=== PATIENT | female | born 1995 | race American Indian/Alaskan Native ===

== ENCOUNTER 2017-04-20 09:50 | Emergency (ER) | payer SELFPAY ==
[2017-04-20 13:30] LABS: Bacteria,Urine 4+ /HPF (Negative); Bilirubin,Urine NEG (Negative); Blood,Urine MOD (Negative); Ketones,Urine NEG (Negative); Leukocyte Esterase,Urine LG (Negative); Mucus,Urine 2+ /HPF; Nitrite,Urine NEG (Negative)
[2017-04-20 13:33] LABS: RBC,Urine > 182.0 /HPF (0.0-6.0); WBC,Urine > 182.0 /HPF (0.0-6.0)
[2017-04-20] MEDS ORDERED: NACL 0.9% 1000 ML 1,000 ML IV ONE (13:55)
[2017-04-20] MEDS ORDERED: ZOFRAN IV ONE (13:55)
[2017-04-20] MEDS ORDERED: MORPHINE IV ONE (13:55)
--- NOTE | 2017-04-20 13:59 | Emergency Department Report ---
ED Abdominal Pain HPI - General Chief Complaint: Abdominal Pain Stated Complaint: ABDOMINAL PAIN,VOMITING Time Seen by Provider: 04/20/17 13:50 Source: patient Mode of arrival: Ambulatory Limitations: No Limitations - History of Present Illness Initial Comments: Patient is 21 years old female with no significant past medical history coming today with left flank pain started last night radiated down to groin area associated with nausea and vomiting and hematuria. Patient denied any fever OR diarrhea. MD Complaint: abdominal pain, flank pain -: Last night Location: R flank Radiation: suprapubic Migration to: no migration Severity: severe Severity scale (0 -10): 9 Quality: sharp Consistency: intermittent Associated Symptoms: nausea, vomiting, dysuria, hematuria. denies: diarrhea, chills - Related Data Allergies Allergy/AdvReac Type Severity Reaction Status Date / Time No Known Allergies Allergy Unverified 04/20/17 10:11 ED Review of Systems ROS: Stated complaint: ABDOMINAL PAIN,VOMITING Other details as noted in HPI Comment: All other systems reviewed and negative Constitutional: denies: chills, fever Respiratory: denies: cough, orthopnea, shortness of breath Cardiovascular: denies: chest pain, palpitations, edema Gastrointestinal: abdominal pain, nausea, vomiting. denies: diarrhea, constipation, hematemesis, hematochezia Genitourinary: dysuria, frequency, hematuria Musculoskeletal: back pain Neurological: denies: headache, weakness, numbness, paresthesias ED Past Medical Hx - Past Medical History Previous Medical History?: Yes Hx Asthma: Yes - Surgical History Past Surgical History?: No - Social History Smoking Status: Never Smoker Substance Use Type: None ED Physical Exam - General Limitations: No Limitations General appearance: alert, in no apparent distress - Head Head exam: Present: normocephalic, normal inspection - Eye Eye exam: Present: normal appearance Pupils: Present: normal accommodation - ENT ENT exam: Present: normal exam, normal orophraynx, mucous membranes dry - Neck Neck exam: Present: normal inspection. Absent: meningismus, full ROM, lymphadenopathy - Respiratory Respiratory exam: Present: normal lung sounds bilaterally. Absent: respiratory distress, wheezes, rales, rhonchi, chest wall tenderness, accessory muscle use, decreased breath sounds - Cardiovascular Cardiovascular Exam: Present: regular rate, normal rhythm, normal heart sounds - GI/Abdominal GI/Abdominal exam: Present: soft, tenderness, normal bowel sounds. Absent: distended, guarding, rebound, rigid, mass, bruit, pulsatile mass - Extremities Exam Extremities exam: Absent: pedal edema, calf tenderness - Back Exam Back exam: Present: normal inspection, CVA tenderness (R). Absent: tenderness, CVA tenderness (L), muscle spasm, paraspinal tenderness, vertebral tenderness - Neurological Exam Neurological exam: Present: alert, oriented X3, CN II-XII intact, normal gait - Skin Skin exam: Present: warm, dry, intact ED Course Vital Signs 04/20/17 04/20/17 04/20/17 10:08 14:09 14:11 Temperature 98.3 F 98.8 F Pulse Rate 86 79 Respiratory 16 18 18 Rate Blood Pressure 119/84 Blood Pressure 117/71 [Right] O2 Sat by Pulse 100 Oximetry 04/20/17 14:39 Temperature Pulse Rate Respiratory 18 Rate Blood Pressure Blood Pressure [Right] O2 Sat by Pulse Oximetry - Reevaluation(s) Reevaluation #1: 04/20/17 16:39 Patient stated that she is feeling much better.. ED Medical Decision Making - Lab Data Result diagrams: 04/20/17 14:05 04/20/17 14:05 - Radiology Data Radiology results: report reviewed CT abdomen and pelvis unremarkable for acute change - Medical Decision Making Patient stated that she is feeling much better reviewed, urine is positive for UTI patient received Rocephin in the ER and given a prescription for ciprofloxacin for 7 days. Critical care attestation.: If time is entered above; I have spent that time in minutes in the direct care of this critically ill patient, excluding procedure time. ED Disposition Clinical Impression: Abdominal pain, UTI (urinary tract infection) Disposition: - TO HOME OR SELFCARE Is pt being admited?: No Condition: Stable Instructions: Abdominal Pain (ED), Urinary Tract Infection in Women (ED) Referrals: PRIMARY CARE, [Primary Care Provider] - 3-5 Days
[2017-04-20 14:22] LABS: Basophils % (Auto) 0.5 % (0.0-1.8); Eosinophils % (Auto) 0.9 % (0.0-4.3); Hematocrit 36.8 % (30.3-42.9); Hemoglobin 11.7 gm/dl (10.1-14.3); Mean Corpuscular HGB Conc 32 % (30-34); Mean Corpuscular Hemoglobin 30 pg (28-32); Mean Corpuscular Volume 94 fl (79-97); Platelet Count 251 K/mm3 (140-440); Red Blood Count 3.92 M/mm3 (3.65-5.03); Red Cell Distribution Width 14.7 % (13.2-15.2); White Blood Count 10.9 K/mm3 (4.5-11.0)
[2017-04-20 14:37] LABS: Alanine Aminotransferase 11 units/L (7-56); Albumin 3.9 g/dL (3.9-5); Alkaline Phosphatase 63 units/L (35-129); Anion Gap 15 mmol/L; BUN/Creatinine Ratio 13; Blood Urea Nitrogen 8 mg/dL (7-17); Carbon Dioxide 25 mmol/L (22-30); Chloride 102.2 mmol/L (98-107); Glucose 81 mg/dL (65-100); Lipase 25 units/L (13-60); Potassium 3.8 mmol/L (3.6-5.0); Sodium 138 mmol/L (137-145); Total Protein 7.8 g/dL (6.3-8.2)
--- NOTE | 2017-04-20 15:04 | Cat Scan Report ---
CT abdomen and pelvis without contrast: Right flank pain. Transverse images are obtained from the low chest to the ischium with coronal and sagittal 2-D reformatted images. The visualized lungs are clear. The abdominal and retroperitoneal organs appear unremarkable. There is no evidence renal calculus nor obstructive uropathy. The unopacified bowel and mesentery is normal. The appendix is visualized. No inflammatory changes appreciated. The abdominal aorta is normal in size and contour. No periaortic adenopathy noted. There is an umbilical hernia containing fat. The mouth of the hernia is 2.7 cm wide. The reproductive organs are present and the pelvis is unremarkable. Impression: No pathology identified.
[2017-04-20] MEDS ORDERED: ROCEPHIN/NS 1 GM/50 ML 1 GM/50 ML BAG IV ONE (16:37)
[2017-04-20] MEDS ORDERED: PERCOCET 5/325 ONE (17:22)
[2017-04-20] MEDS ORDERED: PERCOCET 5/325 PO PRN (17:24)
[2017-04-20 17:27] VITALS: BP 120/70
== END 2017-04-20 17:27 | disposition home or self-care (01) ==
LOC: ED 09:50
DX: N39.0 Urinary tract infection, site not specified (principal)
CPT/HCPCS: 36415; 74176; 80053; 81001; 81025; 83690; 85025; 96361; 96365; 96375; 99284; J0696; J2270; J2405; J7030

== ENCOUNTER 2017-11-20 01:31 | Inpatient (IN) | payer OTHER ==
[2017-11-20] MEDS ORDERED: GEODON IM ONE ×2 (01:39→15:24)
[2017-11-20] MEDS ORDERED: ATIVAN ONE (01:41)
[2017-11-20] MEDS ORDERED: ZOFRAN ONE (01:41)
[2017-11-20] MEDS ORDERED: ATIVAN IV ONE ×2 (01:49→01:55)
[2017-11-20] MEDS ORDERED: ZOFRAN IV ONE (01:49)
[2017-11-20] MEDS ORDERED: BENADRYL ONE (01:51)
--- NOTE | 2017-11-20 01:54 | Emergency Department Report ---
HPI - General Chief Complaint: Altered Mental Status Time Seen by Provider: 11/20/17 01:45 - HPI HPI: 22-year-old AA female presents to the emergency department after EMS was called to the home for an unresponsive episode. She was apparently laying face down when they arrived but when they started to tend to her she started flailing wildly, yelling out and generally being uncooperative. She presents to the emergency department in the same fashion. She is screaming at the top of her lungs and is not redirectable. Through EMS, the significant other said that they had drank about 3 glasses of vodka. EMS also says that the patient said something in route about not doing any drugs. The patient has been here one time previously and did not have any known medical history at that time. She is currently a poor historian secondary to her current condition. ED Past Medical Hx - Past Medical History Hx Asthma: Yes - Social History Smoking Status: Never Smoker Substance Use Type: None - Medications Home Medications: Home Medications Medication Instructions Recorded Confirmed Last Taken Type ALBUTEROL Inhaler INHALATION PRN 11/20/17 11/19/17 History Iron BID 11/20/17 Unknown History Qvar INHALATION BID 11/20/17 11/19/17 History 80mg ED Review of Systems ROS: Stated complaint: POSS OVERDOSE Other details as noted in HPI Comment: Unobtainable due to pts medical conditions Physical Exam - Physical Exam Vital Signs: Vital Signs 11/20/17 01:36 O2 Sat by Pulse 98 Oximetry Physical Exam: GENERAL: Patient is ill-appearing with some intoxication versus delirium versus psychosis. She is screaming at the top of her lungs. HENT: Normocephalic. Atraumatic. Patient has moist mucous membranes. EYES: Extraocular motions are intact. Pupils equal reactive to light bilaterally. NECK: Supple. Trachea is midline. CHEST/LUNGS: Clear to auscultation. Tachypnea and sometimes the patient will start to hyperventilate. Sometimes she will hold her breath. HEART/CARDIOVASCULAR: Regular. There is mild to moderate tachycardia. There is no murmur. ABDOMEN: Abdomen is soft, nontender. Patient has normal bowel sounds. Obese habitus. SKIN: Skin is warm and dry. NEURO: The patient is awake but does appear altered. She is able to give some information but mostly is just yelling at the top of her lungs. GCS of 14. MUSCULOSKELETAL: There is no tenderness or deformity. There is no evidence of acute injury. ED Course Vital Signs 11/20/17 01:36 O2 Sat by Pulse 98 Oximetry - Reevaluation(s) Reevaluation #1: Patient was given medication for her agitation in a stepwise fashion. She received Geodon 20 mg IM followed by Ativan 1 mg IV. When this did not work she got another 1 mg of Ativan and 50 mg IV of Benadryl. The patient eventually began to sleep and we will obtain blood, urine, EKG and imaging to look into the etiology of the patient's altered mental status versus psychosis. She remains on continuous pulse oximetry and telemetry monitoring and currently vital signs are stable. 11/20/17 02:35 ED Medical Decision Making - Lab Data Result diagrams: 11/20/17 02:08 11/20/17 02:08 - EKG Data -: EKG Interpreted by Me EKG shows normal: sinus rhythm, axis, intervals, QRS complexes, ST-T waves Rate: normal - EKG Data When compared to previous EKG there are: previous EKG unavailable Interpretation: normal EKG - Radiology Data Radiology results: report reviewed, image reviewed interpreted by me: Chest x-ray does not show any acute process. There are no pleural effusions, obvious pneumonia and there is no pneumothorax. PROCEDURE: CT HEAD/BRAIN WO CON TECHNIQUE: Computerized tomography of the head was performed without contrast material. HISTORY: AMS COMPARISON: No prior studies are available for comparison. FINDINGS: Skull and scalp: Normal. Paranasal sinuses: Normal. Ventricles and subarachnoid spaces: Normal. Cerebrum: No evidence of hemorrhage, acute infarction or mass . Cerebellum and brainstem: No evidence of hemorrhage, acute infarction or mass. Vasculature: Normal. Comments: None. IMPRESSION: Normal Examination Transcribed By: CO Dictated By: CARMINA ADDISON MD Electronically Authenticated By: CARMINA ADDISON MD Signed Date/Time: 11/20/17 0327 - Medical Decision Making Patient presents to the emergency department after an unresponsive and EMS says that immediately when they began to treat her she started screaming and flailing wildly. Patient presents the same manner. We attempted to redirect her and to get her to calm down but she would not do so and appeared to be a danger to staff and herself. She went in between hyperventilating and holding her breath. She had some episodes where she was gagging but then also accidentally spitting. I do not believe that she was asked to trying to spit at staff but she had some spittle and/or foam at the mouth that would fly around. As it was apparently would not be able to assist her or come up with a diagnosis without any proper labs or imaging, the patient required some medication for her agitation. She was given Geodon, then Ativan, then some Benadryl and eventually she began resting comfortably. We were able to obtain urine, EKG, CT imaging of the head and a chest x-ray and blood for labs. CT of the head did not show any bleed, shift, mass or any acute process. EKG did not show any signs of ST elevation [place] or dysrhythmia. Urinalysis is positive for marijuana. Blood alcohol level was 0.20. She has a lactic acid level of greater than 4. She has a urinary tract infection with 30 WBCs. It is possible that the patient's behavior is secondary to her alcohol intoxication. He is also possible that there was recent marijuana use and there could've been something laced with it that is undetectable on our urine drug screen. It is also possible the patient had some new onset psychiatric condition causing psychosis. However in the condition of the patient presented she fits the criteria where she is unable to care for herself or complete ADLs while in the condition and for this reason I paid her a 1013. She will need to be a medical admission secondary to the fact that she is still sedated and/or altered, she has an elevated lactic acid level, and is requiring some IV fluids to keep her at a reasonable blood pressure. She will have a psychiatric evaluation as well to evaluate for whether or not the 1013 to be rescinded at that time. - Differential Diagnosis alcohol intoxication, psychosis, delirium Critical Care Time: No Critical care attestation.: If time is entered above; I have spent that time in minutes in the direct care of this critically ill patient, excluding procedure time. ED Disposition Clinical Impression: Hypokalemia, Elevated lactic acid level Altered mental status Qualifiers: Altered mental status type: unspecified Qualified Code(s): R41.82 - Altered mental status, unspecified Alcohol intoxication Qualifiers: Complication of substance-induced condition: with unspecified complication Qualified Code(s): F10.929 - Alcohol use, unspecified with intoxication, unspecified Psychosis Qualifiers: Psychosis type: unspecified psychosis type Qualified Code(s): F29 - Unspecified psychosis not due to a substance or known physiological condition Disposition: DC-09 OP ADMIT IP TO THIS HOSP Is pt being admited?: Yes Condition: Stable Time of Disposition: 04:24
[2017-11-20] MEDS ORDERED: BENADRYL IV ONE (01:55)
[2017-11-20] MEDS ORDERED: NACL 0.9% 1000 ML 1,000 ML ONE ×2 (02:00→08:28)
[2017-11-20 02:19] LABS: Basophils % (Auto) 0.4 % (0.0-1.8); Eosinophils # (Auto) 0.1 K/mm3 (0.0-0.4); Eosinophils % (Auto) 0.6 % (0.0-4.3); Hematocrit 33.4 % (30.3-42.9); Hemoglobin 11.2 gm/dl (10.1-14.3); Lymphocytes # (Auto) 2.5 K/mm3 (1.2-5.4); Lymphocytes % (Auto) 22.6 % (13.4-35.0); Mean Corpuscular HGB Conc 34 % (30-34); Mean Corpuscular Hemoglobin 31 pg (28-32); Mean Corpuscular Volume 93 fl (79-97); Monocytes # (Auto) 0.5 K/mm3 (0.0-0.8); Monocytes % (Auto) 4.7 % (0.0-7.3); Platelet Count 294 K/mm3 (140-440); Red Blood Count 3.61 M/mm3 (3.65-5.03); Red Cell Distribution Width 13.8 % (13.2-15.2)
[2017-11-20] MEDS ORDERED: NACL 0.9% 1000 ML 1,000 ML IV ONE ×2 (02:20→05:58)
[2017-11-20 02:42] LABS: Alanine Aminotransferase 12 units/L (7-56); BUN/Creatinine Ratio 10; Blood Urea Nitrogen 7 mg/dL (7-17); Calcium 8.7 mg/dL (8.4-10.2); Hemolysis Index 23
[2017-11-20 02:52] LABS: Bilirubin,Urine NEG (Negative); Blood,Urine SM (Negative); Color,Urine Yellow (Yellow); Hyaline Casts,Urine 4 /LPF; Mucus,Urine FEW /HPF; Urobilinogen,Urine < 2.0 mg/dL (<2.0)
[2017-11-20 02:57] LABS: Amphetamine Screen,Urine PRESUMPTIVE NEGATIVE; Benzodiazepines Screen,Urine PRESUMPTIVE NEGATIVE; Cocaine Screen,Urine PRESUMPTIVE NEGATIVE; Methadone Screen,Urine PRESUMPTIVE NEGATIVE; Opiate Screen,Urine PRESUMPTIVE NEGATIVE
[2017-11-20 02:57] LABS: Albumin 3.9 g/dL (3.9-5)
[2017-11-20] MEDS ORDERED: ROCEPHIN/NS 1 GM/50 ML 1 GM/50 ML BAG IV ONE (03:05)
[2017-11-20 03:24] LABS: Cannabinoid Screen,Urine PRESUMPTIVE POSITIVE
[2017-11-20] MEDS ORDERED: cefTRIAXone 1 GM in NACL 0.9% 20 ML IV ONE (03:30)
--- NOTE | 2017-11-20 03:32 | Cat Scan Report ---
FINAL REPORT PROCEDURE: CT HEAD/BRAIN WO CON TECHNIQUE: Computerized tomography of the head was performed without contrast material. HISTORY: AMS COMPARISON: No prior studies are available for comparison. FINDINGS: Skull and scalp: Normal. Paranasal sinuses: Normal. Ventricles and subarachnoid spaces: Normal. Cerebrum: No evidence of hemorrhage, acute infarction or mass . Cerebellum and brainstem: No evidence of hemorrhage, acute infarction or mass. Vasculature: Normal. Comments: None. IMPRESSION: Normal Examination
[2017-11-20] MEDS ORDERED: VITAMIN B-1 100 MG, FOLVITE 1 MG, INFUVITE 10 ML in NACL 0.9% 1000 ML 1,000 ML IV ONE (04:14)
--- NOTE | 2017-11-20 04:21 | XRay Report ---
FINAL REPORT PROCEDURE: XR CHEST 1V AP TECHNIQUE: Chest radiograph anteroposterior view. CPT 75991 HISTORY: SOB COMPARISON: No prior studies are available for comparison. FINDINGS: Heart: Normal. Mediastinum/Vessels: Normal. Lungs/Pleural space: Lungs are clear and expanded. There are no infiltrates, effusions or pneumothoraces. Bony thorax: No acute osseous abnormality. Life support devices: None. IMPRESSION: No acute cardiopulmonary abnormality.
[2017-11-20] MEDS: KCL 10MEQ/100ML 10 MEQ/100 ML BAG IV SCH ×2 (04:38→05:51)
[2017-11-20] MEDS ORDERED: ZOFRAN IV PRN (05:28)
[2017-11-20] MEDS ORDERED: TYLENOL PO PRN (05:28)
[2017-11-20] MEDS ORDERED: AMBIEN PO PRN (05:28)
[2017-11-20] MEDS ORDERED: NORCO 5/325 PO PRN (05:28)
[2017-11-20] MEDS ORDERED: SODIUM CHLORIDE FLUSH SYRINGE 10 ML IV PRN (05:28)
--- NOTE | 2017-11-20 05:43 | History and Physical Report ---
History of Present Illness Date of examination: 11/20/17 Chief complaint: Combative behavior History of present illness: Presented 22-year-old -Welsh female with history of asthma who was brought to the ED via EMS on account of combative behavior. Patient was a poor historian, so history was obtained from the chart. It was reported that EMS was called because patient was initially unresponsive. However, she became combative after EMS arrived and she was being attended to. Her significant other at her home stated that they were engaged in alcohol consumption prior to the incident. In the ED, patient had to be heavily sedated in order to calm her down. Past History Past Medical History: No medical history, other (asthma) Past Surgical History: No surgical history Social history: other (negative for smoking per chart. Alcohol or illicit drug use history could not be obtained due to altered mental status) Family history: other (could not be obtained due to altered mental status) Medications and Allergies Allergies Allergy/AdvReac Type Severity Reaction Status Date / Time No Known Allergies Allergy Unverified 04/20/17 10:11 Home Medications Medication Instructions Recorded Confirmed Last Taken Type Ciprofloxacin HCl [Ciprofloxacin 500 mg PO Q12H #14 tab 04/20/17 Unknown Rx TAB] Ondansetron [Zofran Odt] 4 mg PO Q8HR PRN #14 tab.rapdis 04/20/17 Unknown Rx traMADol [Ultram 50 MG tab] 50 mg PO Q4HR PRN #14 tablet 04/20/17 Unknown Rx Active Meds: Active Medications Acetaminophen (Tylenol) 650 mg PO Q4H PRN PRN Reason: Pain MILD(1-3)/Fever >100.5/CERON Acetaminophen/Hydrocodone Bitart ([place] 5/325) 1 each PO Q6H PRN PRN Reason: Pain, Moderate (4-6) Thiamine HCl 100 mg/ Folic Acid 1 mg/ Multivitamins/Minerals 10 ml/ Sodium Chloride 1,011.2 mls @ 250 mls/hr IV ONCE ONE Stop: 11/20/17 08:16 Ceftriaxone Sodium (Rocephin/Ns 1 Gm/50 Ml) 1 gm in 50 mls @ 100 mls/hr IV Q24HR JASMINA; Protocol Potassium Chloride/Sodium Chloride (Ns/Kcl 20meq) 20 meq in 1,000 mls @ 125 mls /hr IV DIRECT JASMINA Potassium Chloride (Kcl 10meq/100ml) 10 meq in 100 mls @ 100 mls/hr IV Q1H JASMINA Stop: 11/20/17 09:59 Ondansetron HCl (Zofran) 4 mg IV Q8H PRN PRN Reason: Nausea And Vomiting Sodium Chloride (Sodium Chloride Flush Syringe 10 Ml) 10 ml IV BID JASMINA Sodium Chloride (Sodium Chloride Flush Syringe 10 Ml) 10 ml IV PRN PRN PRN Reason: LINE FLUSH Zolpidem Tartrate (Ambien) 5 mg PO QHS PRN PRN Reason: Insomnia Review of Systems ROS unobtainable: due to mental status (due to altered mental status) Exam - Constitutional Vitals: Temp Pulse Resp BP Pulse Ox 96.8 F L 124 H 23 94/65 100 11/20/17 02:01 11/20/17 05:01 11/20/17 05:01 11/20/17 04:46 11/20/17 04:16 General appearance: Present: no acute distress, other (heavily sedated) - EENT Eyes: Present: PERRL ENT: clear oral mucosa - Neck Neck: Present: supple - Respiratory Respiratory effort: normal Respiratory: bilateral: CTA - Cardiovascular Rhythm: regular Heart Sounds: Present: S1 & S2. Absent: rub, click - Extremities Extremities: pulses symmetrical, No edema - Abdominal General gastrointestinal: Present: soft, non-tender, non-distended, normal bowel sounds - Integumentary Integumentary: Present: warm, dry - Neurologic Neurologic: CNII-XII intact Results - Labs CBC & Chem 7: 11/20/17 02:08 11/20/17 02:08 Labs: Laboratory Last Values WBC 11.0 K/mm3 (4.5-11.0) 11/20/17 02:08 RBC 3.61 M/mm3 (3.65-5.03) L 11/20/17 02:08 Hgb 11.2 gm/dl (10.1-14.3) 11/20/17 02:08 Hct 33.4 % (30.3-42.9) 11/20/17 02:08 MCV 93 fl (79-97) 11/20/17 02:08 MCH 31 pg (28-32) 11/20/17 02:08 MCHC 34 % (30-34) 11/20/17 02:08 RDW 13.8 % (13.2-15.2) 11/20/17 02:08 Plt Count 294 K/mm3 (140-440) 11/20/17 02:08 Lymph % (Auto) 22.6 % (13.4-35.0) 11/20/17 02:08 Bibb % (Auto) 4.7 % (0.0-7.3) 11/20/17 02:08 Eos % (Auto) 0.6 % (0.0-4.3) 11/20/17 02:08 Baso % (Auto) 0.4 % (0.0-1.8) 11/20/17 02:08 Lymph # 2.5 K/mm3 (1.2-5.4) 11/20/17 02:08 [place]b # 0.5 K/mm3 (0.0-0.8) 11/20/17 02:08 Eos # 0.1 K/mm3 (0.0-0.4) 11/20/17 02:08 Baso # 0.0 K/mm3 (0.0-0.1) 11/20/17 02:08 Seg Neutrophils % 71.7 % (40.0-70.0) H 11/20/17 02:08 Seg Neutrophils # 7.9 K/mm3 (1.8-7.7) H 11/20/17 02:08 Sodium 141 mmol/L (137-145) 11/20/17 02:08 Potassium 3.2 mmol/L (3.6-5.0) L 11/20/17 02:08 Chloride 100.8 mmol/L (98-107) 11/20/17 02:08 Carbon Dioxide 22 mmol/L (22-30) 11/20/17 02:08 Anion Gap 21 mmol/L 11/20/17 02:08 BUN 7 mg/dL (7-17) 11/20/17 02:08 Creatinine 0.7 mg/dL (0.7-1.2) 11/20/17 02:08 Estimated GFR > 60 ml/min 11/20/17 02:08 BUN/Creatinine Ratio 10 % 11/20/17 02:08 Glucose 105 mg/dL (65-100) H 11/20/17 02:08 Lactic Acid 2.90 mmol/L (0.7-2.0) H* 11/20/17 04:35 Calcium 8.7 mg/dL (8.4-10.2) 11/20/17 02:08 Total Bilirubin 0.30 mg/dL (0.1-1.2) 11/20/17 02:08 AST 21 units/L (5-40) 11/20/17 02:08 ALT 12 units/L (7-56) 11/20/17 02:08 Alkaline Phosphatase 79 units/L (35-129) 11/20/17 02:08 Ammonia 38.0 umol/L (25-60) 11/20/17 02:08 Total Creatine Kinase 224 units/L (30-135) H 11/20/17 02:08 Troponin T < 0.010 ng/mL (0.00-0.029) 11/20/17 02:08 Total Protein 7.6 g/dL (6.3-8.2) 11/20/17 02:08 Albumin 3.9 g/dL (3.9-5) 11/20/17 02:08 Albumin/Globulin Ratio 1.1 % 11/20/17 02:08 HCG, Qual Negative (Negative) 11/20/17 02:08 Urine Color Yellow (Yellow) 11/20/17 02:10 Urine Turbidity Clear (Clear) 11/20/17 02:10 Urine pH 5.0 (5.0-7.0) 11/20/17 02:10 Ur Specific [place] 1.023 (1.003-1.030) 11/20/17 02:10 Urine Protein 100 mg/dl mg/dL (Negative) 11/20/17 02:10 Urine Glucose (UA) Neg mg/dL (Negative) 11/20/17 02:10 Urine Ketones Neg mg/dL (Negative) 11/20/17 02:10 Urine Blood Sm (Negative) 11/20/17 02:10 Urine Nitrite Neg (Negative) 11/20/17 02:10 Urine Bilirubin Neg (Negative) 11/20/17 02:10 Urine Urobilinogen < 2.0 mg/dL (<2.0) 11/20/17 02:10 Ur Leukocyte Esterase Sm (Negative) 11/20/17 02:10 Urine WBC (Auto) 30.0 /HPF (0.0-6.0) H 11/20/17 02:10 Urine RBC (Auto) 4.0 /HPF (0.0-6.0) 11/20/17 02:10 U Epithel Cells (Auto) 3.0 /HPF (0-13.0) 11/20/17 02:10 Urine WBC Clumps 2+ /HPF 11/20/17 02:10 Hyaline Casts 4 /LPF 11/20/17 02:10 Urine Mucus Few /HPF 11/20/17 02:10 Urine Yeast (Bud[place]) 1+ /HPF 11/20/17 02:10 Salicylates < 0.3 mg/dL (2.8-20.0) L 11/20/17 02:08 Urine Opiates Screen Presumptive negative 11/20/17 02:10 Urine Methadone Screen Presumptive negative 11/20/17 02:10 Acetaminophen < 5.0 ug/mL (10.0-30.0) L 11/20/17 02:08 Ur Barbiturates Screen Presumptive negative 11/20/17 02:10 Ur Phencyclidine Scrn Presumptive negative 11/20/17 02:10 Ur Amphetamines Screen Presumptive negative 11/20/17 02:10 U Benzodiazepines Scrn Presumptive negative 11/20/17 02:10 Urine Cocaine Screen Presumptive negative 11/20/17 02:10 U Marijuana (THC) Screen Presumptive positive 11/20/17 02:10 Drugs of Abuse Note Disclamer 11/20/17 02:10 Plasma/Serum Alcohol 0.20 % (0-0.07) H 11/20/17 02:08 Assessment and Plan Assessment and plan: Acute encephalopathy with agitation. Exact cause unknown, alcohol intoxication is a possibility -Head CT scan is negative -Continue when necessary Ativan -Patient will be monitored clinically SIRS, probably sec to UTI -Will continue IV antibiotic pending the urine culture results Hypokalemia -Will replete and monitor level -Will check magnesium level History of asthma -No acute exacerbation Prophylaxis -DVT prophylaxis with SCD 35 minutes spent coordinating care
[2017-11-20] MEDS ORDERED: NS/KCL 20MEQ 20 MEQ/1,000 ML BAG IV SCH (06:00)
[2017-11-20] MEDS ORDERED: KCL 10MEQ/100ML 10 MEQ/100 ML BAG IV SCH (06:00)
[2017-11-20] MEDS ORDERED: ATIVAN IV PRN (06:09)
--- NOTE | 2017-11-20 09:00 | Progress Note ---
Assessment and Plan Assessment and plan: Current to documentation from history and physical and also ED Documentation. Patient is a "22-year-old -[place] female with history of asthma who was brought to the ED via EMS on account of combative behavior. Patient was a poor historian, so history was obtained from the chart. It was reported that EMS was called because patient was initially unresponsive. However, she became combative after EMS arrived and she was being attended to. Her significant other at her home stated that they were engaged in alcohol consumption prior to the incident. In the ED, patient had to be heavily sedated in order to calm her down. Patient presents to the emergency department after an unresponsive and EMS says that immediately when they began to treat her she started screaming and flailing wildly. Patient presents the same manner. We attempted to redirect her and to get her to calm down but she would not do so and appeared to be a danger to staff and herself. She went in between hyperventilating and holding her breath. She had some episodes where she was gagging but then also accidentally spitting. I do not believe that she was asked to trying to spit at staff but she had some spittle and/or foam at the mouth that would fly around. As it was apparently would not be able to assist her or come up with a diagnosis without any proper labs or imaging, the patient required some medication for her agitation. She was given Geodon, then Ativan, then some Benadryl and eventually she began resting comfortably. We were able to obtain urine, EKG, CT imaging of the head and a chest x-ray and blood for labs. CT of the head did not show any bleed, shift, mass or any acute process. EKG did not show any signs of ST elevation [place] or dysrhythmia. Urinalysis is positive for marijuana. Blood alcohol level was 0.20. She has a lactic acid level of greater than 4. She has a urinary tract infection with 30 WBCs. It is possible that the patient's behavior is secondary to her alcohol intoxication. He is also possible that there was recent marijuana use and there could've been something laced with it that is undetectable on our urine drug screen. It is also possible the patient had some new onset psychiatric condition causing psychosis. However in the condition of the patient presented she fits the criteria where she is unable to care for herself or complete ADLs while in the condition and for this reason I paid her a 1013. She will need to be a medical admission secondary to the fact that she is still sedated and/or altered, she has an elevated lactic acid level, and is requiring some IV fluids to keep her at a reasonable blood pressure. She will have a psychiatric evaluation as well to evaluate for whether or not the 1013 to be rescinded at that time." Acute encephalopathy with agitation. Exact cause unknown, alcohol intoxication is a possibility -Head CT scan is negative -Continue when necessary Ativan -Patient will be monitored clinically SIRS, probably sec to UTI -Will continue IV antibiotic pending the urine culture results Metabolic Acidosis with Elevated Lactate - Dehydration - Hypokalemia -Will replete and monitor level -Will check magnesium level History of asthma -No acute exacerbation Prophylaxis -DVT prophylaxis with SCD 35 minutes spent coordinating care Hospitalist Physical - Constitutional Vitals: Temp Pulse Resp BP Pulse Ox 98.5 F 92 H 13 92/44 100 11/20/17 07:43 11/20/17 07:43 11/20/17 07:43 11/20/17 07:43 11/20/17 07:43 General appearance: Present: no acute distress, other (heavily sedated) Results - Labs CBC & Chem 7: 11/20/17 02:08 11/20/17 02:08 Labs: Laboratory Last Values WBC 11.0 K/mm3 (4.5-11.0) 11/20/17 02:08 RBC 3.61 M/mm3 (3.65-5.03) L 11/20/17 02:08 Hgb 11.2 gm/dl (10.1-14.3) 11/20/17 02:08 Hct 33.4 % (30.3-42.9) 11/20/17 02:08 MCV 93 fl (79-97) 11/20/17 02:08 MCH 31 pg (28-32) 11/20/17 02:08 MCHC 34 % (30-34) 11/20/17 02:08 RDW 13.8 % (13.2-15.2) 11/20/17 02:08 Plt Count 294 K/mm3 (140-440) 11/20/17 02:08 Lymph % (Auto) 22.6 % (13.4-35.0) 11/20/17 02:08 [place] % (Auto) 4.7 % (0.0-7.3) 11/20/17 02:08 Eos % (Auto) 0.6 % (0.0-4.3) 11/20/17 02:08 Baso % (Auto) 0.4 % (0.0-1.8) 11/20/17 02:08 Lymph # 2.5 K/mm3 (1.2-5.4) 11/20/17 02:08 Eagle # 0.5 K/mm3 (0.0-0.8) 11/20/17 02:08 Eos # 0.1 K/mm3 (0.0-0.4) 11/20/17 02:08 Baso # 0.0 K/mm3 (0.0-0.1) 11/20/17 02:08 Seg Neutrophils % 71.7 % (40.0-70.0) H 11/20/17 02:08 Seg Neutrophils # 7.9 K/mm3 (1.8-7.7) H 11/20/17 02:08 Sodium 141 mmol/L (137-145) 11/20/17 02:08 Potassium 3.2 mmol/L (3.6-5.0) L 11/20/17 02:08 Chloride 100.8 mmol/L (98-107) 11/20/17 02:08 Carbon Dioxide 22 mmol/L (22-30) 11/20/17 02:08 Anion Gap 21 mmol/L 11/20/17 02:08 BUN 7 mg/dL (7-17) 11/20/17 02:08 Creatinine 0.7 mg/dL (0.7-1.2) 11/20/17 02:08 Estimated GFR > 60 ml/min 11/20/17 02:08 BUN/Creatinine Ratio 10 % 11/20/17 02:08 Glucose 105 mg/dL (65-100) H 11/20/17 02:08 Lactic Acid 1.80 mmol/L (0.7-2.0) 11/20/17 08:26 Calcium 8.7 mg/dL (8.4-10.2) 11/20/17 02:08 Magnesium 1.90 mg/dL (1.7-2.3) 11/20/17 05:42 Total Bilirubin 0.30 mg/dL (0.1-1.2) 11/20/17 02:08 AST 21 units/L (5-40) 11/20/17 02:08 ALT 12 units/L (7-56) 11/20/17 02:08 Alkaline Phosphatase 79 units/L (35-129) 11/20/17 02:08 Ammonia 38.0 umol/L (25-60) 11/20/17 02:08 Total Creatine Kinase 224 units/L (30-135) H 11/20/17 02:08 Troponin T < 0.010 ng/mL (0.00-0.029) 11/20/17 02:08 Total Protein 7.6 g/dL (6.3-8.2) 11/20/17 02:08 Albumin 3.9 g/dL (3.9-5) 11/20/17 02:08 Albumin/Globulin Ratio 1.1 % 11/20/17 02:08 HCG, Qual Negative (Negative) 11/20/17 02:08 Urine Color Yellow (Yellow) 11/20/17 02:10 Urine Turbidity Clear (Clear) 11/20/17 02:10 Urine pH 5.0 (5.0-7.0) 11/20/17 02:10 Ur Specific [place] 1.023 (1.003-1.030) 11/20/17 02:10 Urine Protein 100 mg/dl mg/dL (Negative) 11/20/17 02:10 Urine Glucose (UA) Neg mg/dL (Negative) 11/20/17 02:10 Urine Ketones Neg mg/dL (Negative) 11/20/17 02:10 Urine Blood Sm (Negative) 11/20/17 02:10 Urine Nitrite Neg (Negative) 11/20/17 02:10 Urine Bilirubin Neg (Negative) 11/20/17 02:10 Urine Urobilinogen < 2.0 mg/dL (<2.0) 11/20/17 02:10 Ur Leukocyte Esterase Sm (Negative) 11/20/17 02:10 Urine WBC (Auto) 30.0 /HPF (0.0-6.0) H 11/20/17 02:10 Urine RBC (Auto) 4.0 /HPF (0.0-6.0) 11/20/17 02:10 U Epithel Cells (Auto) 3.0 /HPF (0-13.0) 11/20/17 02:10 Urine WBC Clumps 2+ /HPF 11/20/17 02:10 Hyaline Casts 4 /LPF 11/20/17 02:10 Urine Mucus Few /HPF 11/20/17 02:10 Urine Yeast (Budding) 1+ /HPF 11/20/17 02:10 Salicylates < 0.3 mg/dL (2.8-20.0) L 11/20/17 02:08 Urine Opiates Screen Presumptive negative 11/20/17 02:10 Urine Methadone Screen Presumptive negative 11/20/17 02:10 Acetaminophen < 5.0 ug/mL (10.0-30.0) L 11/20/17 02:08 Ur Barbiturates Screen Presumptive negative 11/20/17 02:10 Ur Phencyclidine Scrn Presumptive negative 11/20/17 02:10 Ur Amphetamines Screen Presumptive negative 11/20/17 02:10 U Benzodiazepines Scrn Presumptive negative 11/20/17 02:10 Urine Cocaine Screen Presumptive negative 11/20/17 02:10 U Marijuana (THC) Screen Presumptive positive 11/20/17 02:10 Drugs of Abuse Note Disclamer 11/20/17 02:10 Plasma/Serum Alcohol 0.20 % (0-0.07) H 11/20/17 02:08
[2017-11-20] MEDS ORDERED: SODIUM CHLORIDE FLUSH SYRINGE 10 ML IV SCH (10:00)
[2017-11-20] MEDS ORDERED: cefTRIAXone 1 GM in NACL 0.9% 20 ML IV SCH (10:00)
[2017-11-20] MEDS ORDERED: ROCEPHIN/NS 1 GM/50 ML 1 GM/50 ML BAG IV SCH (10:00)
--- NOTE | 2017-11-20 13:28 | Discharge Summary ---
Providers - Providers Date of Admission: 11/20/17 05:28 Attending physician: ABUNDIO ROSARIO MD 11/20/17 08:56 Consult to Mental Health [CONS] Routine Reason For Exam: ACUTE PYSHCOSIS Place consult to:: MENTAL HEALTH Notified:: mh Was contact made?: Yes If yes, spoke with:: nicolás Time called:: 09:47 Comment:: patient arrived at 0929. nicolás was on the floor to see patient Primary care physician: [employer] Hospitalization Condition: Stable Hospital course: Patient is a "22-year-old -Fil[place]ino female with history of asthma who was brought to the ED via EMS on account of combative behavior. Patient was a poor historian, so history was obtained from the chart. It was reported that EMS was called because patient was initially unresponsive. However, she became combative after EMS arrived and she was being attended to. Her significant other at her home stated that they were engaged in alcohol consumption prior to the incident. In the ED, patient had to be heavily sedated in order to calm her down. Patient presents to the emergency department after an unresponsive and EMS says that immediately when they began to treat her she started screaming and flailing wildly. Patient presents the same manner. We attempted to redirect her and to get her to calm down but she would not do so and appeared to be a danger to staff and herself. She went in between hyperventilating and holding her breath. She had some episodes where she was gagging but then also accidentally spitting. I do not believe that she was asked to trying to spit at staff but she had some spittle and/or foam at the mouth that would fly around. As it was apparently would not be able to assist her or come up with a diagnosis without any proper labs or imaging, the patient required some medication for her agitation. She was given Geodon, then Ativan, then some Benadryl and eventually she began resting comfortably. We were able to obtain urine, EKG, CT imaging of the head and a chest x-ray and blood for labs. CT of the head did not show any bleed, shift, mass or any acute process. EKG did not show any signs of ST elevation [place] or dysrhythmia. Urinalysis is positive for marijuana. Blood alcohol level was 0.20. She has a lactic acid level of greater than 4. She has a urinary tract infection with 30 WBCs. It is possible that the patient's behavior is secondary to her alcohol intoxication. He is also possible that there was recent marijuana use and there could've been something laced with it that is undetectable on our urine drug screen. It is also possible the patient had some new onset psychiatric condition causing psychosis. However in the condition of the patient presented she fits the criteria where she is unable to care for herself or complete ADLs while in the condition and for this reason I paid her a 1013. She will need to be a medical admission secondary to the fact that she is still sedated and/or altered, she has an elevated lactic acid level, and is requiring some IV fluids to keep her at a reasonable blood pressure. She will have a psychiatric evaluation as well to evaluate for whether or not the 1013 to be rescinded at that time." Acute encephalopathy with agitation. Exact cause unknown, alcohol intoxication is a possibility -Head CT scan is negative -Continue when necessary Ativan -Patient will be monitored clinically SIRS, probably sec to UTI -Will continue IV antibiotic pending the urine culture results Metabolic Acidosis with Elevated Lactate - Dehydration - Hypokalemia -Will replete and monitor level -Will check magnesium level History of asthma -No acute exacerbation Prophylaxis -DVT prophylaxis with SCD 35 minutes spent coordinating care Disposition: DC-01 TO HOME OR SELFCARE Time spent for discharge: 35 mins Core Measure Documentation - Palliative Care Palliative Care/ Comfort Measures: Not Applicable Exam - Physical Exam Narrative exam: VITAL SIGNS: Reviewed. GENERAL: The patient appeared well nourished and normally developed. Vital signs as documented. HEAD: No signs of head trauma. EYES: Pupils are equal. Extraocular motions intact. EARS: Hearing grossly intact. MOUTH: Oropharynx is normal. NECK: No adenopathy, no JVD. CHEST: Chest with clear breath sounds bilaterally. No wheezes, rales, or rhonchi. CARDIAC: Regular rate and rhythm. S1 and S2, without murmurs, gallops, or rubs. VASCULAR: No Edema. Peripheral pulses normal and equal in all extremities. ABDOMEN: Soft, without detectable tenderness. No sign of distention. No rebound or guarding, and no masses palpated. Bowel Sounds normal. MUSCULOSKELETAL: Good range of motion of all major joints. Extremities without clubbing, cyanosis or edema. NEUROLOGIC EXAM: Alert and oriented x 3. No focal sensory or strength deficits. Speech normal. Follows commands. PSYCHIATRIC: Mood normal. SKIN: Mild upper extremity bruising. No laceration noted. - Constitutional Vitals: Temp Pulse Resp BP Pulse Ox 98.5 F 104 H 20 105/64 100 11/20/17 09:44 11/20/17 09:44 11/20/17 09:44 11/20/17 09:44 11/20/17 09:44 Plan Activity: advance as tolerated, fall precautions Diet: low fat Special Instructions: record daily weights, record daily BP diary, smoking cessation, other (avoid substance use. Enroll in AA program) Additional Instructions: CONTINUE CURRENT HOME MEDICATION Follow up with: PRIMARY CARE, [Primary Care Provider] - 3-5 Days
--- NOTE | 2017-11-20 14:43 | Emergency Department Report ---
Blank Doc - Documentation Documentation: 1013 has been rescinded after psych evaluation has been completed. Patient has contracted for safety and can be discharged home safely once medically cleared.
[2017-11-20 15:59] VITALS: BP 125/75
== END 2017-11-20 17:05 | disposition home or self-care (01) | DRG 689 ==
LOC: EEVIPCON 01:31 → ED 01:31 → 3A 05:28
PROVIDERS: ADMIT Internal Medicine; ATTEND Internal Medicine
DX: N39.0 Urinary tract infection, site not specified (principal); G93.40 Encephalopathy, unspecified; R65.10 Systemic inflammatory response syndrome (SIRS) of non-infectious origin without acute organ dysfunction; E87.2 Acidosis; F10.129 Alcohol abuse with intoxication, unspecified; F29 Unspecified psychosis not due to a substance or known physiological condition; R45.1 Restlessness and agitation; E87.6 Hypokalemia; E86.0 Dehydration; J45.909 Unspecified asthma, uncomplicated
CPT/HCPCS: 36415; 70450; 71045; 80053; 80307; 80320; 81001; 82140; 82550; 83735; 84484; 84703; 85025; 93005; 93010; 96361; 96365; 96375; G0480; J0696; J1200; J2060; J2405; J3411; J3480; J3486; J7030